=== PATIENT | female | born 1955 | race Caucasian/White ===

== ENCOUNTER → 2018-03-02 | Outpatient (CLI) | payer BC ==
[~2018-03-02] MED LIST: IBAN2.5 PO; PANT40 PO; RANI150 PO
== END | disposition home or self-care (01) ==
LOC: LAB EV 10:56 → LAB SHORT 10:56
DX: N76.0 Acute vaginitis (principal)
CPT/HCPCS: 87070; 87205

== ENCOUNTER → 2020-07-07 | Outpatient (CLI) | payer MEDICARE, BC | END | disposition home or self-care (01) | LOC: LAB SHORT 09:04 → LAB EV 09:04 | DX: N39.0 Urinary tract infection, site not specified (principal) | CPT/HCPCS: 87077; 87086; 87186 ==

== ENCOUNTER → 2021-04-08 | Outpatient (CLI) | payer MEDICARE, BC | LOC: LAB 18:06 → LAB SHORT 18:06 | DX: R82.79 Other abnormal findings on microbiological examination of urine (principal) | CPT/HCPCS: 87086 ==

== ENCOUNTER → 2021-09-13 | Outpatient (CLI) | payer MEDICARE, BC | END | disposition home or self-care (01) | LOC: LAB 14:51 → LAB SHORT 14:51 | DX: N30.00 Acute cystitis without hematuria (principal) | CPT/HCPCS: 87077; 87086; 87186 ==

== ENCOUNTER → 2021-10-06 | Outpatient (CLI) | payer MEDICARE, BC | END | disposition home or self-care (01) | LOC: LAB SHORT 16:49 | DX: N39.0 Urinary tract infection, site not specified (principal) | CPT/HCPCS: 87086 ==

== ENCOUNTER → 2021-11-09 | Outpatient (CLI) | payer MEDICARE, OTHER | END | disposition home or self-care (01) | LOC: LAB SHORT 19:13 | DX: N39.0 Urinary tract infection, site not specified (principal) | CPT/HCPCS: 87086 ==

== ENCOUNTER 2023-04-17 07:32 | Day surgery (SDC) | payer MEDICARE, OTHER ==
[~2023-04-17] VITALS: Ht 162.6 cm; Wt 63.1 kg
[2023-04-17 09:55] VITALS: BP 130/84
== END 2023-04-17 09:45 | disposition home or self-care (01) ==
LOC: ORSCSDS 07:32
PROVIDERS: Internal Medicine Gastroenterology
PROC: 0DJD8ZZ Inspection of Lower Intestinal Tract, Via Natural or Artificial Opening Endoscopic (ICD-10-PCS; principal; 2023-04-17 08:45)
DX: Z12.11 Encounter for screening for malignant neoplasm of colon (principal); Z83.71 Family history of colonic polyps; K64.8 Other hemorrhoids; K57.30 Diverticulosis of large intestine without perforation or abscess without bleeding; E78.5 Hyperlipidemia, unspecified; K21.9 Gastro-esophageal reflux disease without esophagitis; M81.0 Age-related osteoporosis without current pathological fracture
CPT/HCPCS: J2704; J7120

== ENCOUNTER → 2023-10-01 | Outpatient (CLI) | payer MEDICARE, OTHER | LOC: LAB 12:12 → LAB SHORT 12:12 | DX: N39.0 Urinary tract infection, site not specified (principal) | CPT/HCPCS: 87077; 87086; 87186 ==

== ENCOUNTER → 2023-10-08 | Outpatient (CLI) | payer MEDICARE, OTHER | LOC: LAB SHORT 13:30 → LAB 13:30 | DX: N39.0 Urinary tract infection, site not specified (principal) | CPT/HCPCS: 87077; 87086; 87186 ==

== ENCOUNTER → 2023-10-23 | Outpatient (CLI) | payer MEDICARE, OTHER | LOC: LAB 15:15 → LAB SHORT 15:15 | DX: N39.0 Urinary tract infection, site not specified (principal) | CPT/HCPCS: 87077; 87086; 87186 ==

== ENCOUNTER → 2024-01-20 | Outpatient (CLI) | payer MEDICARE, OTHER | END | disposition home or self-care (01) | LOC: LAB SHORT 14:00 → LAB 14:00 | DX: N39.0 Urinary tract infection, site not specified (principal) | CPT/HCPCS: 87086 ==